=== PATIENT | female | born 1985 | race Hispanic/Latino ===

== ENCOUNTER 2018-04-21 22:29 | Emergency (ER) | payer MEDICAID ==
[2018-04-21] MEDS ORDERED: SODIUM CHLORIDE 0.9% 1000ML 1,000 ML IV ONE (23:30)
[2018-04-21 23:45] LABS: BASOPHILS % (AUTO) 0.8 % (0.0-5.0); HEMATOCRIT 39.6 % (36-48); LYMPHOCYTES % (AUTO) 16.6 % (21.0-51.0); MEAN CORPUSCULAR HGB CONC 34.6 g/dL (32.0-36.0); MEAN CORPUSCULAR VOLUME 89.7 fL (79-99); MONOCYTES % (AUTO) 6.7 % (3.0-13.0); NEUTROPHILS % (AUTO) 74.9 % (40.0-77.0); PLATELET COUNT (AUTO) 288 K/uL (130-400); RED BLOOD CELL COUNT(AUTO) 4.41 MIL/uL (4.00-5.50); RED CELL DISTRIBUTION WIDTH 13.5 % (11.0-15.5); WHITE BLOOD COUNT (AUTO) 12.6 K/uL (4.8-10.8)
[2018-04-21 23:55] LABS: CREATININE 0.6 mg/dL (0.5-1.5); POTASSIUM 3.6 mmol/L (3.5-5.1)
== END 2018-04-22 02:29 | disposition home or self-care (01) ==
LOC: EDH 22:29
DX: O03.9 Complete or unspecified spontaneous abortion without complication (principal); Z90.49 Acquired absence of other specified parts of digestive tract; Z3A.01 Less than 8 weeks gestation of pregnancy
CPT/HCPCS: 36415; 76801; 76817; 80048; 84702; 85025; 86850; 86900; 86901; 99284; J7030

== ENCOUNTER 2018-10-29 17:08 | Emergency (ER) | payer MEDICAID ==
[2018-10-29] MEDS ORDERED: ACETAMINOPHEN 325 MG TAB ONE (17:58)
[2018-10-29 18:25] LABS: BASOPHILS % (AUTO) 0.7 % (0.0-5.0); HEMATOCRIT 41.1 % (36-48); LYMPHOCYTES % (AUTO) 20.8 % (21.0-51.0); MEAN CORPUSCULAR HEMOGLOBIN 30.1 pg (27.0-33.0); MEAN CORPUSCULAR HGB CONC 33.8 g/dL (32.0-36.0); MONOCYTES % (AUTO) 6.9 % (3.0-13.0); NEUTROPHILS % (AUTO) 70.6 % (40.0-77.0); PLATELET COUNT (AUTO) 319 K/uL (130-400); RED BLOOD CELL COUNT(AUTO) 4.62 MIL/uL (4.00-5.50); RED CELL DISTRIBUTION WIDTH 13.6 % (11.0-15.5); WHITE BLOOD COUNT (AUTO) 10.3 K/uL (4.8-10.8)
[2018-10-29 19:29] LABS: APPEARANCE,URINE Clear (CLEAR); BILIRUBIN,URINE Negative (NEGATIVE); COLOR,URINE Yellow (YELLOW); GLUCOSE, URINE (UA) Negative (NEGATIVE); KETONES,URINE Trace mg/dL (NEGATIVE); LEUKOCYTE ESTERASE ,URINE Trace (NEGATIVE); NITRATE,URINE Negative (NEGATIVE); OCCULT BLOOD,URINE Negative (NEGATIVE); PH,URINE 6.5 (5.0-8.0); PROTEIN,URINE Negative (NEGATIVE)
[2018-10-29 19:41] LABS: BACTERIA,URINE Few /HPF (None Seen); MUCUS,URINE Few LPF (None Seen); RBC,URINE 0-1 /HPF (0-1); SQUAMOUS EPITHELIAL CELL,UR Few /HPF (0-2)
== END 2018-10-29 19:39 | disposition home or self-care (01) ==
LOC: EDH 17:08
DX: O20.0 Threatened abortion (principal); O26.891 Other specified pregnancy related conditions, first trimester; S39.012A Strain of muscle, fascia and tendon of lower back, initial encounter; Z88.6 Allergy status to analgesic agent; Z90.49 Acquired absence of other specified parts of digestive tract; Z87.891 Personal history of nicotine dependence; Z3A.08 8 weeks gestation of pregnancy; W18.39XA Other fall on same level, initial encounter; Y93.89 Activity, other specified; Y92.89 Other specified places as the place of occurrence of the external cause; Y99.8 Other external cause status
CPT/HCPCS: 36415; 76801; 81001; 84702; 85025; 86900; 86901

== ENCOUNTER 2019-10-26 13:38 | Emergency (ER) | payer MEDICAID ==
[2019-10-26 14:36] LABS: BASOPHILS % (AUTO) 0.7 % (0.0-5.0); EOSINOPHILS % (AUTO) 1.7 % (0.0-8.0); HEMATOCRIT 39.7 % (36-48); LYMPHOCYTES % (AUTO) 27.5 % (21.0-51.0); MEAN CORPUSCULAR HEMOGLOBIN 28.2 pg (27.0-33.0); MEAN CORPUSCULAR HGB CONC 33.8 g/dL (32.0-36.0); MEAN CORPUSCULAR VOLUME 83.6 fL (79-99); MONOCYTES % (AUTO) 7.9 % (3.0-13.0); NEUTROPHILS % (AUTO) 61.8 % (40.0-77.0); PLATELET COUNT (AUTO) 389 K/uL (130-400); RED BLOOD CELL COUNT(AUTO) 4.75 MIL/uL (4.00-5.50); RED CELL DISTRIBUTION WIDTH 12.4 % (11.0-15.5); WHITE BLOOD COUNT (AUTO) 7.6 K/uL (4.8-10.8)
== END 2019-10-26 16:01 | disposition home or self-care (01) ==
LOC: EDH 13:38
DX: O20.9 Hemorrhage in early pregnancy, unspecified (principal); Z88.5 Allergy status to narcotic agent; Z90.49 Acquired absence of other specified parts of digestive tract; Z3A.01 Less than 8 weeks gestation of pregnancy
CPT/HCPCS: 36415; 76801; 84702; 85025

== ENCOUNTER 2020-02-05 22:54 | Observation (INO) | payer MEDICAID ==
[~2020-02-05] VITALS: Ht 154.9 cm; Wt 83.0 kg
[2020-02-05 23:21] LABS: APPEARANCE,URINE Cloudy (CLEAR); BILIRUBIN,URINE Negative (NEGATIVE); COLOR,URINE Yellow (YELLOW); GLUCOSE, URINE (UA) Negative (NEGATIVE); KETONES,URINE Negative (NEGATIVE); LEUKOCYTE ESTERASE ,URINE Moderate (NEGATIVE); NITRATE,URINE Negative (NEGATIVE); OCCULT BLOOD,URINE Negative (NEGATIVE); PROTEIN,URINE Negative (NEGATIVE)
[2020-02-05 23:25] LABS: HCG,QUAL RESULT POSITIVE (NEGATIVE)
[2020-02-05 23:31] LABS: BACTERIA,URINE Few /HPF (None Seen); MUCUS,URINE Rare LPF (None Seen); RBC,URINE None Seen /HPF (0-1); SQUAMOUS EPITHELIAL CELL,UR Many /HPF (0-2)
[2020-02-05 23:33] LABS: BASOPHILS % (AUTO) 0.5 % (0.0-5.0); EOSINOPHILS % (AUTO) 0.8 % (0.0-8.0); HEMATOCRIT 37.3 % (36-48); LYMPHOCYTES % (AUTO) 13.3 % (21.0-51.0); MEAN CORPUSCULAR HEMOGLOBIN 27.1 pg (27.0-33.0); MEAN CORPUSCULAR HGB CONC 33.2 g/dL (32.0-36.0); MEAN CORPUSCULAR VOLUME 81.4 fL (79-99); MONOCYTES % (AUTO) 5.1 % (3.0-13.0); NEUTROPHILS % (AUTO) 79.9 % (40.0-77.0); PLATELET COUNT (AUTO) 378 K/uL (130-400); RED BLOOD CELL COUNT(AUTO) 4.58 MIL/uL (4.00-5.50); RED CELL DISTRIBUTION WIDTH 14.6 % (11.0-15.5); WHITE BLOOD COUNT (AUTO) 18.8 K/uL (4.8-10.8)
[2020-02-06 00:07] LABS: ALBUMIN 3.8 g/dL (3.5-5.0); BILIRUBIN,TOTAL 0.3 mg/dL (0.2-1.0); CREATININE 0.7 mg/dL (0.5-1.5); TOTAL PROTEIN, SERUM 7.4 g/dL (6.0-8.3)
[2020-02-06] MEDS ORDERED: ACETAMINOPHEN EXTRA STRENGTH 500 MG TABLET ONE (00:35)
[2020-02-06] MEDS ORDERED: LACTATED RINGERS 1000ML 1,000 ML IV ONE (02:26)
[2020-02-06] MEDS ORDERED: CEFAZOLIN SODIUM 1 GM VIAL ONE (02:26)
[2020-02-06 03:00] VITALS: BP 119/71
[2020-02-06] MEDS: LACTATED RINGERS 1000ML 1,000 ML IV SCH ×3 (04:00→19:30)
[2020-02-06] MEDS ORDERED: MEPERIDINE HCL/PF 25 MG/0.5 ML AMPUL IVP PRN (04:00)
[2020-02-06 05:28] LABS: HEMATOCRIT 33.6 % (36-48); MEAN CORPUSCULAR HEMOGLOBIN 27.1 pg (27.0-33.0); MEAN CORPUSCULAR HGB CONC 33.3 g/dL (32.0-36.0); MEAN CORPUSCULAR VOLUME 81.2 fL (79-99); RED BLOOD CELL COUNT(AUTO) 4.14 MIL/uL (4.00-5.50); RED CELL DISTRIBUTION WIDTH 14.6 % (11.0-15.5); WHITE BLOOD COUNT (AUTO) 12.8 K/uL (4.8-10.8)
[2020-02-06] MEDS: PROMETHAZINE HCL 25 MG/ML 1ML AMPULE IM PRN ×2 (05:43→11:40)
[2020-02-06] MEDS: MEPERIDINE-PF 50 MG/ML SYG IM PRN ×2 (05:45→11:46)
[2020-02-06 07:45] VITALS: BP 98/64
--- NOTE | 2020-02-06 09:15 | NUR ---
JET HEARD IN TO SEE PATIENT FOR DR. ALEJANDRA AND ORDER GIVEN FOR MRI TO BE DONE AND EXPLAINED TO PATIENT IMPORTANCE OF STAYING NPO UNTIL APPENDIX IS CLEARED, AND IF APPENDIX IS NOT CLEARED WILL TAKE FOR SURGERY THIS PM.
[2020-02-06] MEDS: CEFAZOLIN SODIUM 1 GM VIAL IVP SCH ×2 (10:23→18:20)
--- NOTE | 2020-02-06 11:30 | NUR ---
DR. HARO ROUNDED AND H&P DONE ON PATIENT. NO NEW ORDERS GIVEN.
[2020-02-06 12:02] VITALS: BP 100/56
--- NOTE | 2020-02-06 15:55 | NUR ---
JET HEARD ROUNDED AFTER MRI WAS DONE AND INDICATED PATIENT COULD HAVE CLEAR LIQUIDS SINCE APPENDIX APPEARED NORMAL. WILL SEE PATIENT IN A.M.
--- NOTE | 2020-02-06 15:57 | NUR ---
[employer] CALLED NO ANSWER. [phone] NON WORKING NUMBER. [phone] STRAIGHT TO VOICEMAIL. Addendum: 02/06/20 at 1558 by AUSTIN DALY RN CM Amended: Links added.
[2020-02-06 16:20] VITALS: BP 109/60
--- NOTE | 2020-02-06 17:40 | NUR ---
PT C/O NOT WANTING CLEAR LIQUIDS. STATES BEING HUNGRY AND WANTS SOLID. JET HEARD CALLED AND INFORMED OF PATIENT WANTING REGULAR DIET AND INDICATED IF PATIENT DOES OKAY WITH CLEARS SHE WILL BE ADVANCED TOMORROW TO REGULAR DIET. PATIENT INDICATED WANTING TO GO HOME AND WAS MADE AWARE OF DOCTORS NOT GIVING DISCHARGE ORDER UNTIL SHE IS CLEARED BY SURGEON. PATIENT CALMED DOWN AND WAS MADE AWARE THAT SHE MIGHT BE DISCHARGED IN MORNING.
--- NOTE | 2020-02-06 19:15 | NUR ---
REPORT GIVEN TO ALE DIALLO LVN AND PATIENT CARE TRANSFERED AT THIS TIME.
[2020-02-06 19:45] VITALS: BP 113/75
== END 2020-02-06 21:00 | disposition left against medical advice (07) ==
LOC: EDH 22:54 → EDHIP 22:55 → INTOOBSV 22:55 → WSH 02-06 03:21
PROVIDERS: ADMIT Obstetrics & Gynecology; ATTEND Obstetrics & Gynecology
DX: O99.611 Diseases of the digestive system complicating pregnancy, first trimester (principal); K35.80 Unspecified acute appendicitis; Z3A.01 Less than 8 weeks gestation of pregnancy; Z88.5 Allergy status to narcotic agent; Z90.49 Acquired absence of other specified parts of digestive tract
CPT/HCPCS: 36415 ×2; 74181; 76705; 76801; 80053; 81001; 81025; 83690; 84702 ×2; 85025; 85027; 87088; 96361; 96372 ×2; 96374; 96376; 99285; G0378 ×17; J0690 ×3; J2175 ×2; J2550 ×2; J7120 ×2; 76802

== ENCOUNTER 2020-03-02 13:01 | Emergency (ER) | payer MEDICAID ==
[2020-03-02 13:52] LABS: BASOPHILS % (AUTO) 0.7 % (0.0-5.0); EOSINOPHILS % (AUTO) 1.3 % (0.0-8.0); HEMATOCRIT 38.2 % (36-48); LYMPHOCYTES % (AUTO) 23.2 % (21.0-51.0); MEAN CORPUSCULAR HEMOGLOBIN 26.8 pg (27.0-33.0); MEAN CORPUSCULAR HGB CONC 32.5 g/dL (32.0-36.0); MEAN CORPUSCULAR VOLUME 82.5 fL (79-99); MONOCYTES % (AUTO) 6.2 % (3.0-13.0); NEUTROPHILS % (AUTO) 68.4 % (40.0-77.0); PLATELET COUNT (AUTO) 421 K/uL (130-400); RED BLOOD CELL COUNT(AUTO) 4.63 MIL/uL (4.00-5.50); RED CELL DISTRIBUTION WIDTH 13.8 % (11.0-15.5); WHITE BLOOD COUNT (AUTO) 8.3 K/uL (4.8-10.8)
[2020-03-02 14:02] LABS: CREATININE 0.9 mg/dL (0.5-1.5); POTASSIUM 3.8 mmol/L (3.5-5.1)
[2020-03-02 14:28] LABS: ALBUMIN 3.7 g/dL (3.5-5.0); BILIRUBIN,TOTAL 0.2 mg/dL (0.2-1.0); TOTAL PROTEIN, SERUM 7.6 g/dL (6.0-8.3)
[2020-03-02 15:15] LABS: BILIRUBIN,URINE NEGATIVE (NEGATIVE); COLOR,URINE RED (YELLOW); GLUCOSE, URINE (UA) NEGATIVE (NEGATIVE); KETONES,URINE NEGATIVE (NEGATIVE); LEUKOCYTE ESTERASE ,URINE TRACE (NEGATIVE); NITRATE,URINE NEGATIVE (NEGATIVE); OCCULT BLOOD,URINE LARGE (NEGATIVE); PH,URINE 6.5 (5.0-8.0); PROTEIN,URINE >=300 mg/dL (NEGATIVE); UROBILINOGEN,URINE 0.2 mg/dL (0.2-1.0)
[2020-03-02 15:20] LABS: APPEARANCE,URINE BLOODY (CLEAR)
[2020-03-02 15:23] LABS: BACTERIA,URINE Few /HPF (None Seen); RBC,URINE 0-1 /HPF (0-1); SQUAMOUS EPITHELIAL CELL,UR None Seen /HPF (0-2); WBC,URINE Full Field /HPF (0-1)
== END 2020-03-02 16:40 | disposition home or self-care (01) ==
LOC: EDH 13:01
DX: O03.4 Incomplete spontaneous abortion without complication (principal); O23.41 Unspecified infection of urinary tract in pregnancy, first trimester; Z3A.10 10 weeks gestation of pregnancy
CPT/HCPCS: 36415; 76801; 80053; 81001; 84702; 85025; 86900; 86901; 87077; 87088; 87186

== ENCOUNTER 2021-01-29 16:31 | Emergency (ER) | payer MEDICAID ==
[~2021-01-29] VITALS: Ht 154.9 cm; Wt 68.0 kg
[2021-01-29 17:12] VITALS: BP 112/73
[2021-01-29] MEDS ORDERED: CEFTRIAXONE 1G VIAL IM ONE (17:30)
[2021-01-29] MEDS ORDERED: KETOROLAC 30MG VIAL (30MG/ML) IM ONE (17:30)
[2021-01-29] MEDS ORDERED: CEPH500B PO (17:34)
[2021-01-29] MEDS ORDERED: SULF1TAB42 PO (17:34)
[2021-01-29] MEDS ORDERED: IBUP-2070 PO (17:34)
[2021-01-29] MEDS ORDERED: LIDOCAINE HCL-MPF 1% 2ML VIAL ONE (18:02)
[2021-01-29] MEDS ORDERED: LIDOCAINE HCL-MPF 1% 2ML VIAL IM SCH (19:30)
== END 2021-01-29 18:33 | disposition home or self-care (01) ==
LOC: EDH 16:31
DX: N61.0 Mastitis without abscess (principal); Z88.5 Allergy status to narcotic agent; Z79.1 Long term (current) use of non-steroidal anti-inflammatories (NSAID)
CPT/HCPCS: 96372 ×2; 99284; J0696; J1885; J3490